=== PATIENT | male | born 1985 | race Caucasian/White ===

== ENCOUNTER 2018-05-02 14:43 | Emergency (ER) | payer BC ==
[~2018-05-02] VITALS: Ht 188 cm; Wt 95.3 kg
[2018-05-02] MEDS ORDERED: CYCLOBENZAPRINE HCL 10 MG TAB PO ONE (15:15)
[2018-05-02] MEDS ORDERED: TRAMADOL HCL 50 MG TAB PO ONE (15:15)
[2018-05-02] MEDS ORDERED: KETOROLAC TROMETHAMINE 60 MG/2 ML VIAL IM STA (15:15)
[2018-05-02] MEDS ORDERED: DEXAMETHASONE SOD PHOS INJ 4 MG/ML VIAL ONE (15:20)
[2018-05-02 15:30] VITALS: BP 134/82
[2018-05-02] MEDS ORDERED: DEXAMETHASONE SOD PHOS 10 MG/1 ML VIAL INJ ONE (16:00)
== END 2018-05-02 15:41 | disposition home or self-care (01) ==
LOC: ER 14:43
DX: M54.5 Low back pain (principal); X50.0XXA Overexertion from strenuous movement or load, initial encounter; Y93.B3 Activity, free weights; Y92.39 Other specified sports and athletic area as the place of occurrence of the external cause
CPT/HCPCS: 99283; J1100; J1885